=== PATIENT | male | born 1950 | race Caucasian/White ===

== ENCOUNTER 2017-11-11 20:02 | Emergency (ER) | payer OTHER, MEDICARE ==
[2017-11-11 20:31] VITALS: TEMP 98.4
--- NOTE | 2017-11-11 21:45 | EDPHY ---
H & P Stated Complaint: UPPER LIP LAC, FALL ON CONCRETE, NO LOC OR OTHER INJURIES Time Seen by Provider: 11/11/17 21:45 HPI/ROS: HPI: This is a 67-year-old male who presents with Chief Complaint: UPPER LIP LAC, FALL ON CONCRETE, NO LOC OR OTHER INJURIES Location: Upper lip Quality: Laceration Duration: 1 hr prior to arrival Signs and Symptoms: No bleeding, no radiation, no numbness, no weakness, no tingling, no incontinence, no decreased range of motion, no swelling, no pain Timing: Acute Severity: Mild Context: Patient was helping his daughter and son-in-law moved= items out of their apartment. He presents with complaints of an upper lip laceration. He reports that he was helping to move a box did not see the edge on the cement and fell forward hitting his mouth on the box. Denies LOC/head injury/neck pain/ dizziness/nausea/vomiting/amnesia/dental pain. Patient reports his tetanus is up-to-date. Does Not take any blood thinners. He applied direct pressure to his upper lip in the bleeding stopped immediately. Modifying Factors: Direct pressure Comment: ROS: see HPI Constitutional: No fever, no chills, no weight loss Eyes: No blurred vision Respiratory: No shortness of breath, no cough Cardiovascular: No chest pain Gastrointestinal: No nausea, no vomiting no diarrhea Genitourinary: No dysuria Extremities: No myalgias Neurologic: No weakness, no numbness Skin: No rashes Hematologic: No bruising, no bleeding MEDICAL/SURGICAL/SOCIAL HISTORY: Medical history: HIGH CHOL, HERNIA X2 Surgical history: Denies Social history: . CONSTITUTIONAL: awake and alert, no obvious distress HEENT: Atraumatic and normocephalic. Upper left side of lip 0.5 cm superficial , vertical laceration sparing the vermilion border; no active bleeding. No malocclusion. NECK: supple, no midline tenderness, flexion 45 degrees, extension 45 degrees, right and left lateral flexion 45 degrees. No meningismus. Cardiovascular: Normal S1/S2, regular rate, regular rhythm, without murmur rub or gallop. PULMONARY/CHEST: Symmetrical and nontender. no crepitus. Clear to auscultation bilaterally. Good air movement. No accessory muscle usage. ABDOMEN: Soft, nondistended, nontender, no ecchymosis. PELVIC: no pain with rocking; bilateral hips flexion 125 degrees, extension 30 degrees, with no pain internal rotation and no pain external rotation. BACK: No midline tenderness, no paraspinous spasm, deep tendon reflexes 2/2, no pain with straight leg raise EXTREMITIES: 2/2 pulses, strength 5/5, DIP/PIP/MCP flexion/extension intact with good light touch sensation. no deformities, no clubbing, no cyanosis or edema. NEUROLOGICAL: no focal neuro deficits. GCS 15. Light touch sensation intact. SKIN: Warm and dry, no erythema. no rash. Good capillary refill. Source: Patient Exam Limitations: No limitations - Personal History Current Tetanus/Diphtheria Vaccine: Yes - Medical/Surgical History Hx Asthma: No Hx Chronic Respiratory Disease: No Hx Diabetes: No Hx Cardiac Disease: No Hx Renal Disease: No Hx Cirrhosis: No Hx Alcoholism: No Hx HIV/AIDS: No Hx Splenectomy or Spleen Trauma: No Other PMH: HIGH CHOL, HERNIA X2 - Social History Smoking Status: Former smoker Constitutional: Initial Vital Signs Temperature (C) 36.9 C 11/11/17 20:27 Heart Rate 56 L 11/11/17 20:27 Respiratory Rate 18 11/11/17 20:27 Blood Pressure 130/73 H 11/11/17 20:27 O2 Sat (%) 96 11/11/17 20:27 O2 Delivery Mode Room Air Allergies/Adverse Reactions: No Known Allergies Allergy (Unverified 11/11/17 20:27) Home Medications: Medication Instructions Recorded SIMVASTATIN 11/11/17 Medical Decision Making Procedures: Procedure: Laceration repair. Verbal consent was obtained from the patient. The Upper left side of lip 0.5 cm superficial, vertical laceration sparing the vermilion border was anesthetized in the usual fashion using 2 mL of 0.5% bupivacaine. The wound was irrigated, draped and explored to its base with a gloved finger. There were no deep structures involved. No tendon injury was identified. The wound was repaired with #2, 5 0 Vicryl. Good hemostasis was achieved and patient tolerated procedure well. The procedure was performed by myself. ED Course/Re-evaluation: Laceration repaired with absorbable suture No head injury and no neurological deficits. Discussed age being greater than 65 years old for head CT imaging and patient and politely decline. No signs of neurovascular compromise/tenting of skin/compartment syndrome/ extremities and joints examined above and below area of concern and are neurovascularly intact. This patient was seen under the supervision of my secondary supervising physician. I evaluated care for this patient independently. Differential Diagnosis: Differential diagnosis includes but is not limited to mandible fracture, lip laceration, dental trauma, vermilion injury, concussion. Departure - Departure Disposition: Home, Routine, Self-Care Clinical Impression: Laceration of lip without complication Qualifiers: Encounter type: initial encounter Qualified Code(s): S01.511A - Laceration without foreign body of lip, initial encounter Condition: Good Instructions: Laceration (ED), Care For Your Absorbable Stitches (ED) Additional Instructions: Your laceration today was closed with absorbable sutures. These will slowly dissolve over time and they do not need to be removed. Please rinse your mouth after eating until fully healed. Return to the ER immediately if you have progressive headaches, neurologic deficits, gait abnormality, visual disturbance, slurred speech, or any other symptom that concerns you. Referrals: PCP Not In,Dictionary [Medical Doctor] - As per Instructions
[2017-11-11 22:23] VITALS: BP 128/74; PULSE 59; RESP 14; O2SAT 95
== END 2017-11-11 22:23 | disposition home or self-care (01) ==
PROC: 0CQ0XZZ Repair Upper Lip, External Approach (ICD-10-PCS; principal; 2017-11-11)
DX: S01.511A Laceration without foreign body of lip, initial encounter (principal); Z87.891 Personal history of nicotine dependence; W18.09XA Striking against other object with subsequent fall, initial encounter

== ENCOUNTER → 2018-02-19 | Outpatient (CLI) | payer OTHER, MEDICARE | LOC: FIMAGING 07:13 | PROVIDERS: ATTEND Internal Medicine | DX: K76.0 Fatty (change of) liver, not elsewhere classified (principal); R74.0 Nonspecific elevation of levels of transaminase and lactic acid dehydrogenase [LDH] ==

== ENCOUNTER → 2018-09-11 | Outpatient (CLI) | payer OTHER | LOC: FIMAGING 08:15 | PROVIDERS: ATTEND Internal Medicine Interventional Cardiology | DX: Z13.6 Encounter for screening for cardiovascular disorders (principal); R94.30 Abnormal result of cardiovascular function study, unspecified ==